=== PATIENT | male | born 1965 | race Caucasian/White ===

== ENCOUNTER 2018-03-25 09:31 | Inpatient (IN) | payer OTHER, MEDICAID ==
[2018-03-25] VITALS (9 sets, daily range): BP systolic 95–135; BP diastolic 41–93
[~2018-03-25] VITALS: Ht 167.6 cm; Wt 71.0 kg
[2018-03-25 10:10] LABS: PLATELET COUNT 363 x10^3mcL (130-400); RED CELL DISTRIBUTION WIDTH 14.1 % (11.5-14.5)
[2018-03-25 10:29] LABS: ALKALINE PHOSPHATASE 95 U/L (46-116); ALT/SGPT 90 U/L (16-63); AST/SGOT 59 U/L (15-37); BILIRUBIN TOTAL 0.7 mg/dL (0.20-1.00); CALCIUM 7.5 mg/dL (8.5-10.1); CARBON DIOXIDE 20.7 mmol/L (21-32); CHLORIDE SERUM 73 mmol/L (98-107); CREATININE SERUM 0.9 mg/dL (0.7-1.3); GFR1 > 60 mL/min; GLUCOSE SERUM 131 mg/dL (74-106); POTASSIUM SERUM 4.5 mmol/L (3.5-5.1)
[2018-03-25 10:36] LABS: ALBUMIN 2.8 g/dL (3.4-5.0); SODIUM SERUM 106 mmol/L (136-145); TOTAL PROTEIN, SERUM 5.8 g/dL (6.4-8.2)
[2018-03-25 11:18] LABS: BAND NEUTROPHIL 16 % (0-10); BASOPHIL 0 % (0-2); METAMYELOCTE 1 % (0-2); MONOCYTE 10 % (0-7); MYELOCYTE 1 % (0-2); SEGMENTED NEUTROPHILS 65 % (37-75)
[2018-03-25 11:19] LABS: burr cell (echinocyte) 1+; rbc morphology (normal/abnorm) ABNORMAL (NORMAL)
[2018-03-25] MEDS ORDERED: SERO100 PO (11:40)
[2018-03-25 12:12] LABS: T3 TOTAL 1.05 ng/mL
[2018-03-25 12:18] LABS: CHOLESTEROL/HDL RATIO 2.4; MAGNESIUM 1.2 mg/dL (1.8-2.4); PHOSPHOROUS 3.7 mg/dL (2.5-4.9)
[2018-03-25 12:26] LABS: AMPHETAMINE QUAL UR NONE DETECTED (NEG <=1000)
[2018-03-25 12:27] LABS: FREE T4 1.35 ng/dL (0.76-1.46); FREE THYROXINE INDEX 3.2 ug/dL (1.4-4.5); T4(THYROXINE) 8.7 ug/dL (4.7-13.3)
[2018-03-25 17:30] LABS: PLATELET COUNT 302 x10^3mcL (130-400); RED CELL DISTRIBUTION WIDTH 13.8 % (11.5-14.5)
[2018-03-25 18:29] LABS: CALCIUM 6.7 mg/dL (8.5-10.1); CARBON DIOXIDE 21.5 mmol/L (21-32); CHLORIDE SERUM 81 mmol/L (98-107); CREATININE SERUM 0.5 mg/dL (0.7-1.3); GFR1 > 60 mL/min; GLUCOSE SERUM 116 mg/dL (74-106); POTASSIUM SERUM 3.7 mmol/L (3.5-5.1)
[2018-03-25 18:35] LABS: SODIUM SERUM 113 mmol/L (136-145)
[2018-03-25 20:03] LABS: BAND NEUTROPHIL 14 % (0-10); MONOCYTE 3 % (0-7); SEGMENTED NEUTROPHILS 73 % (37-75)
[2018-03-25 20:04] LABS: BASOPHIL 0 % (0-2); METAMYELOCTE 1 % (0-2); PLATELET MORPHOLOGY LARGE PLATELET SEEN; burr cell (echinocyte) 1+; rbc morphology (normal/abnorm) ABNORMAL (NORMAL)
[2018-03-25 20:21] LABS: UA SPECIFIC GRAVITY >=1.030 (1.005-1.035); microscopic required? YES; urine erythrocyte TRACE (NEGATIVE)
[2018-03-25 20:33] LABS: CALCIUM 6.7 mg/dL (8.5-10.1); CARBON DIOXIDE 23.1 mmol/L (21-32); CHLORIDE SERUM 82 mmol/L (98-107); CREATININE SERUM 0.6 mg/dL (0.7-1.3); GFR1 > 60 mL/min; GLUCOSE SERUM 94 mg/dL (74-106); POTASSIUM SERUM 3.4 mmol/L (3.5-5.1)
[2018-03-25 20:35] LABS: SODIUM SERUM 115 mmol/L (136-145)
[2018-03-25 23:39] LABS: CALCIUM 6.9 mg/dL (8.5-10.1); CHLORIDE SERUM 82 mmol/L (98-107); CREATININE SERUM 0.6 mg/dL (0.7-1.3); GFR1 > 60 mL/min; GLUCOSE SERUM 92 mg/dL (74-106); POTASSIUM SERUM 3.4 mmol/L (3.5-5.1)
[2018-03-25 23:47] LABS: SODIUM SERUM 115 mmol/L (136-145)
[2018-03-26] VITALS (17 sets, daily range): BP systolic 99–129; BP diastolic 45–90
[2018-03-26 02:01] LABS: CALCIUM 6.9 mg/dL (8.5-10.1); CARBON DIOXIDE 24.2 mmol/L (21-32); CHLORIDE SERUM 82 mmol/L (98-107); CREATININE SERUM 0.6 mg/dL (0.7-1.3); GFR1 > 60 mL/min; GLUCOSE SERUM 95 mg/dL (74-106); POTASSIUM SERUM 3.3 mmol/L (3.5-5.1)
[2018-03-26 02:05] LABS: SODIUM SERUM 114 mmol/L (136-145)
[2018-03-26 05:48] LABS: PLATELET COUNT 288 x10^3mcL (130-400)
[2018-03-26 05:49] LABS: BASOPHIL % 0 % (0-2)
[2018-03-26 06:11] LABS: CALCIUM 7.1 mg/dL (8.5-10.1); CARBON DIOXIDE 22.3 mmol/L (21-32); CHLORIDE SERUM 84 mmol/L (98-107); CREATININE SERUM 0.7 mg/dL (0.7-1.3); GFR1 > 60 mL/min; GLUCOSE SERUM 84 mg/dL (74-106); PHOSPHOROUS 2.4 mg/dL (2.5-4.9); POTASSIUM SERUM 3.4 mmol/L (3.5-5.1)
[2018-03-26 06:12] LABS: SODIUM SERUM 116 mmol/L (136-145)
[2018-03-26 13:01] LABS: CALCIUM 7.1 mg/dL (8.5-10.1); CARBON DIOXIDE 23.2 mmol/L (21-32); CHLORIDE SERUM 86 mmol/L (98-107); CREATININE SERUM 0.7 mg/dL (0.7-1.3); GFR1 > 60 mL/min; GLUCOSE SERUM 73 mg/dL (74-106); POTASSIUM SERUM 3.6 mmol/L (3.5-5.1)
[2018-03-26 13:12] LABS: SODIUM SERUM 118 mmol/L (136-145)
[2018-03-26 15:59] LABS: CALCIUM 7.3 mg/dL (8.5-10.1); CARBON DIOXIDE 23.2 mmol/L (21-32); CHLORIDE SERUM 89 mmol/L (98-107); CREATININE SERUM 0.8 mg/dL (0.7-1.3); GFR1 > 60 mL/min; GLUCOSE SERUM 95 mg/dL (74-106); POTASSIUM SERUM 4.1 mmol/L (3.5-5.1)
[2018-03-26 16:02] LABS: SODIUM SERUM 121 mmol/L (136-145)
[2018-03-26 20:45] LABS: CALCIUM 7.5 mg/dL (8.5-10.1); CARBON DIOXIDE 24.1 mmol/L (21-32); CHLORIDE SERUM 91 mmol/L (98-107); CREATININE SERUM 0.8 mg/dL (0.7-1.3); GFR1 > 60 mL/min; GLUCOSE SERUM 77 mg/dL (74-106)
[2018-03-26 20:51] LABS: SODIUM SERUM 124 mmol/L (136-145)
[2018-03-27] VITALS (18 sets, daily range): BP systolic 94–121; BP diastolic 45–62
[2018-03-27 00:57] LABS: CALCIUM 7.5 mg/dL (8.5-10.1); CARBON DIOXIDE 22.7 mmol/L (21-32); CHLORIDE SERUM 92 mmol/L (98-107); CREATININE SERUM 0.7 mg/dL (0.7-1.3); GFR1 > 60 mL/min; GLUCOSE SERUM 82 mg/dL (74-106); POTASSIUM SERUM 3.9 mmol/L (3.5-5.1)
[2018-03-27 01:00] LABS: SODIUM SERUM 124 mmol/L (136-145)
[2018-03-27 04:46] LABS: BASOPHIL % 0.4 % (0-2); PLATELET COUNT 233 x10^3mcL (130-400); RED CELL DISTRIBUTION WIDTH 14.4 % (11.5-14.5)
[2018-03-27 04:55] LABS: CALCIUM 7.4 mg/dL (8.5-10.1); CARBON DIOXIDE 23.3 mmol/L (21-32); CHLORIDE SERUM 94 mmol/L (98-107); CREATININE SERUM 0.7 mg/dL (0.7-1.3); GFR1 > 60 mL/min; GLUCOSE SERUM 102 mg/dL (74-106); POTASSIUM SERUM 3.8 mmol/L (3.5-5.1); SODIUM SERUM 125 mmol/L (136-145)
[2018-03-27 04:56] LABS: MAGNESIUM 1.8 mg/dL (1.8-2.4); PHOSPHOROUS 2.4 mg/dL (2.5-4.9)
[2018-03-27 09:06] LABS: CALCIUM 7.5 mg/dL (8.5-10.1); CARBON DIOXIDE 25.1 mmol/L (21-32); CHLORIDE SERUM 95 mmol/L (98-107); CREATININE SERUM 0.8 mg/dL (0.7-1.3); GFR1 > 60 mL/min; GLUCOSE SERUM 121 mg/dL (74-106); POTASSIUM SERUM 3.6 mmol/L (3.5-5.1); SODIUM SERUM 127 mmol/L (136-145)
[2018-03-27 16:23] LABS: CALCIUM 7.3 mg/dL (8.5-10.1); CARBON DIOXIDE 25.1 mmol/L (21-32); CHLORIDE SERUM 97 mmol/L (98-107); CREATININE SERUM 0.6 mg/dL (0.7-1.3); GFR1 > 60 mL/min; GLUCOSE SERUM 113 mg/dL (74-106); POTASSIUM SERUM 3.6 mmol/L (3.5-5.1); SODIUM SERUM 128 mmol/L (136-145)
[2018-03-28] VITALS (18 sets, daily range): BP systolic 94–132; BP diastolic 47–72
[2018-03-28 05:01] LABS: BASOPHIL % 0.5 % (0-2); PLATELET COUNT 243 x10^3mcL (130-400); RED CELL DISTRIBUTION WIDTH 14.5 % (11.5-14.5)
[2018-03-28 05:27] LABS: CALCIUM 7.5 mg/dL (8.5-10.1); CARBON DIOXIDE 25.3 mmol/L (21-32); CHLORIDE SERUM 101 mmol/L (98-107); CREATININE SERUM 0.6 mg/dL (0.7-1.3); GFR1 > 60 mL/min; GLUCOSE SERUM 104 mg/dL (74-106); MAGNESIUM 1.9 mg/dL (1.8-2.4); PHOSPHOROUS 2.8 mg/dL (2.5-4.9); POTASSIUM SERUM 3.8 mmol/L (3.5-5.1); SODIUM SERUM 131 mmol/L (136-145)
[2018-03-29] VITALS (10 sets, daily range): BP systolic 97–144; BP diastolic 31–74; Ht 167.6 cm; Wt 71.0 kg
[2018-03-29 05:45] LABS: CALCIUM 7.6 mg/dL (8.5-10.1); CARBON DIOXIDE 25.8 mmol/L (21-32); CHLORIDE SERUM 103 mmol/L (98-107); CREATININE SERUM 0.6 mg/dL (0.7-1.3); GFR1 > 60 mL/min; GLUCOSE SERUM 100 mg/dL (74-106); MAGNESIUM 1.8 mg/dL (1.8-2.4); PHOSPHOROUS 3.5 mg/dL (2.5-4.9); SODIUM SERUM 136 mmol/L (136-145)
[2018-03-29 05:59] LABS: BASOPHIL % 0.5 % (0-2); PLATELET COUNT 262 x10^3mcL (130-400)
[2018-03-29 09:10] LABS: IRON 27 ug/dL (65-170); TOTAL IRON BINDING CAPACITY 180 ug/dL (250-450)
[2018-03-29 09:41] LABS: RED BLOOD CELLS 2.94 M/mm3 (4.52-5.90)
[2018-03-30] VITALS (7 sets, daily range): BP systolic 122–152; BP diastolic 63–88
[2018-03-30 06:44] LABS: PLATELET COUNT 345 x10^3mcL (130-400)
[2018-03-30 06:45] LABS: RED CELL DISTRIBUTION WIDTH 14.7 % (11.5-14.5)
[2018-03-30 06:56] LABS: CALCIUM 8.2 mg/dL (8.5-10.1); CARBON DIOXIDE 26.1 mmol/L (21-32); CHLORIDE SERUM 100 mmol/L (98-107); CREATININE SERUM 0.6 mg/dL (0.7-1.3); GFR1 > 60 mL/min; GLUCOSE SERUM 108 mg/dL (74-106); MAGNESIUM 1.6 mg/dL (1.8-2.4); PHOSPHOROUS 3.4 mg/dL (2.5-4.9); POTASSIUM SERUM 4.2 mmol/L (3.5-5.1); SODIUM SERUM 136 mmol/L (136-145)
[2018-03-30 10:47] LABS: BAND NEUTROPHIL 2 % (0-10); BASOPHIL 0 % (0-2); MONOCYTE 2 % (0-7); SEGMENTED NEUTROPHILS 93 % (37-75)
[2018-03-30 10:48] LABS: PLATELET MORPHOLOGY PLATELETS INCREASED; rbc morphology (normal/abnorm) ABNORMAL (NORMAL)
[2018-03-31 03:15] VITALS: BP 153/73
[2018-03-31 05:23] LABS: BASOPHIL % 0.4 % (0-2); PLATELET COUNT 319 x10^3mcL (130-400)
[2018-03-31 05:24] LABS: RED CELL DISTRIBUTION WIDTH 15.3 % (11.5-14.5)
[2018-03-31 05:34] LABS: CALCIUM 8.1 mg/dL (8.5-10.1); CARBON DIOXIDE 31.1 mmol/L (21-32); CHLORIDE SERUM 101 mmol/L (98-107); CREATININE SERUM 0.6 mg/dL (0.7-1.3); GFR1 > 60 mL/min; GLUCOSE SERUM 90 mg/dL (74-106); POTASSIUM SERUM 4.7 mmol/L (3.5-5.1); SODIUM SERUM 137 mmol/L (136-145)
[2018-03-31 08:00] VITALS: BP 146/63
[2018-03-31 12:32] VITALS: BP 127/68
[2018-03-31 15:22] VITALS: BP 118/54
[2018-03-31 20:00] VITALS: BP 153/72
[2018-04-01 00:46] VITALS: BP 127/59
[2018-04-01 04:15] VITALS: BP 143/67
[2018-04-01 05:32] LABS: CALCIUM 7.8 mg/dL (8.5-10.1); CARBON DIOXIDE 29.8 mmol/L (21-32); CHLORIDE SERUM 100 mmol/L (98-107); CREATININE SERUM 0.7 mg/dL (0.7-1.3); GFR1 > 60 mL/min; GLUCOSE SERUM 93 mg/dL (74-106); MAGNESIUM 1.9 mg/dL (1.8-2.4); PHOSPHOROUS 3.7 mg/dL (2.5-4.9); POTASSIUM SERUM 3.9 mmol/L (3.5-5.1); SODIUM SERUM 134 mmol/L (136-145)
[2018-04-01 05:34] LABS: BASOPHIL % 0.5 % (0-2); PLATELET COUNT 339 x10^3mcL (130-400)
[2018-04-01 05:41] LABS: RED CELL DISTRIBUTION WIDTH 14.9 % (11.5-14.5)
[2018-04-01 19:17] VITALS: BP 148/60
[2018-04-01 23:58] VITALS: BP 153/71
[2018-04-02 05:12] LABS: BASOPHIL % 0.3 % (0-2); PLATELET COUNT 369 x10^3mcL (130-400)
[2018-04-02 05:18] LABS: RED CELL DISTRIBUTION WIDTH 15.6 % (11.5-14.5)
[2018-04-02 05:27] LABS: CALCIUM 8.3 mg/dL (8.5-10.1); CARBON DIOXIDE 27.8 mmol/L (21-32); CHLORIDE SERUM 103 mmol/L (98-107); CREATININE SERUM 0.6 mg/dL (0.7-1.3); GFR1 > 60 mL/min; GLUCOSE SERUM 98 mg/dL (74-106); PHOSPHOROUS 3.5 mg/dL (2.5-4.9); POTASSIUM SERUM 4.6 mmol/L (3.5-5.1); SODIUM SERUM 136 mmol/L (136-145)
[2018-04-02 08:20] VITALS: BP 136/68
[2018-04-02 08:40] VITALS: BP 150/77
[2018-04-02 12:00] VITALS: BP 154/94
[2018-04-02 16:00] VITALS: BP 146/76
[2018-04-02 19:26] VITALS: BP 148/92
[2018-04-02 20:20] VITALS: BP 140/70
[2018-04-03 05:33] VITALS: BP 149/76
[2018-04-03 07:19] LABS: CARBON DIOXIDE 27.3 mmol/L (21-32); CHLORIDE SERUM 107 mmol/L (98-107); CREATININE SERUM 0.7 mg/dL (0.7-1.3); GFR1 > 60 mL/min; GLUCOSE SERUM 90 mg/dL (74-106); POTASSIUM SERUM 4.1 mmol/L (3.5-5.1); SODIUM SERUM 137 mmol/L (136-145)
[2018-04-03 07:23] LABS: BASOPHIL % 0.4 % (0-2); PLATELET COUNT 364 x10^3mcL (130-400)
[2018-04-03 08:26] LABS: RED CELL DISTRIBUTION WIDTH 15.6 % (11.5-14.5)
[2018-04-03 09:43] VITALS: BP 150/20
[2018-04-03 13:25] VITALS: BP 134/60
[2018-04-03 16:47] VITALS: BP 122/61
[2018-04-03 20:58] VITALS: BP 107/65
[2018-04-04 05:48] VITALS: BP 123/63
[2018-04-04 07:27] LABS: BASOPHIL % 0.6 % (0-2)
[2018-04-04 07:35] LABS: CALCIUM 8.9 mg/dL (8.5-10.1); CARBON DIOXIDE 29.7 mmol/L (21-32); CHLORIDE SERUM 103 mmol/L (98-107); CREATININE SERUM 0.8 mg/dL (0.7-1.3); GFR1 > 60 mL/min; GLUCOSE SERUM 89 mg/dL (74-106); POTASSIUM SERUM 4.9 mmol/L (3.5-5.1); SODIUM SERUM 141 mmol/L (136-145)
[2018-04-04 07:42] LABS: PLATELET COUNT 431 x10^3mcL (130-400); RED CELL DISTRIBUTION WIDTH 15.8 % (11.5-14.5)
[2018-04-04 09:32] VITALS: BP 127/68
[2018-04-04] MEDS ORDERED: CLOZ25 PO (14:17)
[2018-04-04] MEDS ORDERED: NIC14 TD (14:18)
[2018-04-04] MEDS ORDERED: NOR5 PO (14:18)
[2018-04-04] MEDS ORDERED: FER300 PO (14:18)
[2018-04-04] MEDS ORDERED: LEXAPRO10 MG NG (14:19)
[2018-04-04] MEDS ORDERED: VITC PO (14:19)
[2018-04-04 14:31] VITALS: BP 127/68
== END 2018-04-04 15:45 | DRG 871 ==
LOC: ED 09:31 → IC 10:44 → DU 04-02 20:04 → MU 04-04 08:21
PROVIDERS: Emergency Medicine; Family Medicine; Student in an Organized Health Care Education/Training Program
PROC: 5A1945Z Respiratory Ventilation, 24-96 Consecutive Hours (ICD-10-PCS; principal; 2018-03-25)
PROC: 0BH17EZ Insertion of Endotracheal Airway into Trachea, Via Natural or Artificial Opening (ICD-10-PCS; 2018-03-25)
PROC: 04H Lower Arteries, Insertion (ICD-10-PCS; 2018-03-25)
PROC: 05HM33Z Insertion of Infusion Device into Right Internal Jugular Vein, Percutaneous Approach (ICD-10-PCS; 2018-03-25)
PROC: B543ZZA Ultrasonography of Right Jugular Veins, Guidance (ICD-10-PCS; 2018-03-25)
DX: A41.9 Sepsis, unspecified organism (principal); J96.01 Acute respiratory failure with hypoxia; J69.0 Pneumonitis due to inhalation of food and vomit; G93.41 Metabolic encephalopathy; E43 Unspecified severe protein-calorie malnutrition; R65.21 Severe sepsis with septic shock; E87.1 Hypo-osmolality and hyponatremia; E87.2 Acidosis; M62.82 Rhabdomyolysis; F25.0 Schizoaffective disorder, bipolar type; R56.9 Unspecified convulsions; R80.9 Proteinuria, unspecified; E83.42 Hypomagnesemia; D64.9 Anemia, unspecified; M62.50 Muscle wasting and atrophy, not elsewhere classified, unspecified site; K76.0 Fatty (change of) liver, not elsewhere classified; E87.6 Hypokalemia; Z68.21 Body mass index [BMI] 21.0-21.9, adult
CPT/HCPCS: 36556; 36600; 82693; 82962; 83880; 84439; 85378; 92610-GN; 97110-GP; 97116-GP; 97530-GP; A4628; C9113; G0480; J1265; J1642; J1644; J1940; J1953; J1956; J2060; J2250; J2405; J2704; J3010; J3475; J3490; J7030; J7040; J7620; Q0092; Q9967